=== PATIENT | female | born 1955 | race Caucasian/White ===

== ENCOUNTER → 2016-08-17 | Outpatient (CLI) | payer BC ==
--- NOTE | 2016-08-18 08:22 | MM ---
Reason for exam: screening (asymptomatic). Last mammogram was performed 1 year and 2 months ago. History: Patient is postmenopausal and is nulliparous. Physical Findings: A clinical breast exam by your physician is recommended on an annual basis and results should be correlated with mammographic findings. MG Screening Mammo w CAD Bilateral CC and MLO view(s) were taken. Prior study comparison: June 04, 2015, bilateral MG screening mammo w CAD. April 26, 2014, bilateral MG screening mammo w CAD. The breast tissue is heterogeneously dense. This may lower the sensitivity of mammography. There is no discrete abnormality. No significant changes when compared with prior studies. ASSESSMENT: Negative, BI-RAD 1 RECOMMENDATION: Routine screening mammogram of both breasts in 1 year.
== END | disposition home or self-care (01) ==
LOC: RADMAMWWP 08:35
PROVIDERS: ATTEND Obstetrics & Gynecology
DX: Z12.31 Encounter for screening mammogram for malignant neoplasm of breast (principal)

== ENCOUNTER → 2017-02-02 | Outpatient (CLI) | payer BC ==
--- NOTE | 2017-02-03 12:43 | NM ---
EXAMINATION TYPE: NM thyroid image w uptake DATE OF EXAM: 02/03/2017 COMPARISON: 07/14/2016 HISTORY: Nontoxic goiter TECHNIQUE: After the intravenous administration of 10.98 mCi Tc 99m Sodium Pertechnetate, thyroid roxana ging is performed 10 minutes post injection. Thyroid iodine uptake is calculated after the oral admin istration of 16.3 uCi I-131 capsule. FINDINGS: There is heterogeneous distribution of activity throughout the gland. The 4 hour iodine up take is calculated at 6.6% (normal range 8-14%). The 24-hour iodine uptake is calculated at 24.8% (no rmal range 15-35%). IMPRESSION: 1. Multiple cold appearing nodules with heterogeneous pattern bilaterally. 2. 24-hour uptake is within normal limits in the 4 hour uptake is borderline hypothyroidism.
== END | disposition home or self-care (01) ==
LOC: RADNMMAIN 01-25 10:37
PROVIDERS: ATTEND Internal Medicine
DX: E03.9 Hypothyroidism, unspecified (principal)
CPT/HCPCS: 78014; A9528; A9512

== ENCOUNTER → 2017-02-28 | Outpatient (CLI) | payer BC ==
--- NOTE | 2017-02-28 13:32 | US ---
EXAMINATION TYPE: US thyroid st tissue head/neck DATE OF EXAM: 02/28/2017 COMPARISON: NONE CLINICAL HISTORY: E04.9 Non-toxic goiter. follow up exam GLAND SIZE: Right Lobe: 7.8 x 4.1 x 3.8 cm Overall Parenchyma: heterogenous Left Lobe: 5.5 x 1.5 x 2.5 cm Overall Parenchyma: heterogeneous Isthmus Thickness: 0.2 cm NODULES RIGHT: # of nodules measured on right: 1 1. 4.2 X 2.4 x 3.1 cm mixed nodule at the mid pole with well-defined margins. This nodule is wider than tall and shows intranodular vascularity. Prior size: 4.4 x 3.1 x 3.7 cm LEFT: # of nodules measured on left: 1 1. 1.6 X 1.6 x 1.0 cm hypoechoic solid nodule at the mid pole with well-defined margins. This nodu le is wider than tall and shows intranodular vascularity. Prior size: 1.2 x 0.9 x 1.1 cm ISTHMUS: # of nodules measured in the isthmus: 1 1. 1.2 X 0.9 x 1.2 cm hypoechoic cystic nodule on the right side with well-defined margins. This n odule is wider than tall and shows no intranodular vascularity. Prior size: 1.2 x 0.9 x 1.1 cm Bilateral neck scanned, no evidence of lymphadenopathy. IMPRESSION: 1. Continued interval increase in size of a solid left thyroid nodule measuring up to 1.6 cm, previou sly measuring 1.2 cm and measuring 0.9 cm on the examination prior. Percutaneous fine-needle aspirati on could be performed of this nodule if clinically indicated. 2. Stable 4.2 cm heterogenous right thyroid nodule and thyroid isthmic nodule in the setting of a mul tinodular goiter.
== END | disposition home or self-care (01) ==
LOC: RADUSWWP 12:16
PROVIDERS: ATTEND Internal Medicine
DX: E04.2 Nontoxic multinodular goiter (principal)
CPT/HCPCS: 76536

== ENCOUNTER 2017-03-28 12:18 | Day surgery (SDC) | payer BC ==
[2017-03-28 12:46] VITALS: RESP 14; TEMP 97.8
[2017-03-28 13:13] VITALS: BP 119/73; PULSE 83
--- NOTE | 2017-03-28 13:31 | US ---
ULTRASOUND GUIDED FNA THYROID BIOPSY: CLINICAL HISTORY: Request is for a right thyroid 4.2 cm nodule and left 1.6 cm thyroid nodule FINDINGS: The procedure was explained to the patient. The risks, complications, benefits and alternatives were discussed and any questions were answered. Informed consent was obtained. Patient was placed supin e on the ultrasound table and prepped and draped in the usual sterile fashion. Utilizing a 25 gauge needle, five passes were made into the each of the 2 requested nodules. Patient was stable throughout the procedure. Pathology is pending. All elements of maximal barrier technique were utilized. IMPRESSION: 1. Successful ultrasound guided FNA thyroid biopsy.
== END 2017-03-28 13:18 | disposition home or self-care (01) ==
LOC: RADPROMAIN 12:18
PROVIDERS: ATTEND Internal Medicine
DX: E04.1 Nontoxic single thyroid nodule (principal); E07.9 Disorder of thyroid, unspecified
CPT/HCPCS: 10022; 76942; 88173; 88305

== ENCOUNTER → 2017-09-06 | Outpatient (CLI) | payer BC ==
--- NOTE | 2017-09-06 08:34 | BD ---
EXAMINATION TYPE: MG DEXA axial skeleton. DATE OF EXAM: 09/06/2017 COMPARISON: 06/04/2015 CLINICAL HISTORY: 62-year-old female with osteopenia, postmenopausal screening Height: 58.5 IN Weight: 115 LBS FRAX RISK QUESTIONS: Alcohol (3 or more units per day): NO Family History (Parent hip fracture): NO Glucocorticoids (More than 3mos): NO (Ex: prednisone, prednisolone, methylprednisolone, dexamethasone, and hydrocortisone). History of Fracture in Adulthood: NO Secondary Osteoporosis: 1. Type 1 Diabetes: NO 2. Hyperthyroidism: NO 3. Menopause before 45: YES AGE 26 4. Malnutrition: NO 5. Chronic liver disease: NO Rheumatoid Arthritis: NO Current Tobacco Use: NO RISK FACTORS HISTORY OF: Family History of Osteoporosis: YES MOTHER Active: YES Diet low in dairy products/other sources of calcium: YES Postmenopausal woman: AGE 26 Take estrogen and/or progesterone medications: NOT NOW How long: CONTROL AGE 20 - 26 MEDICATIONS: Additional Medications: CALCIUM, VIT D, BLOOD PRESSURE MEDS, DIABETES MEDS, MULTI VIT, EXAM MEASUREMENTS: Bone mineral densitometry was performed using the [employer]. Bone mineral density as measured about the Lumbar spine is: ----- L1-L4(G/cm2): 0.876 T Score Values are as follows: ----- L2: -2.8 ----- L3: -3.0 ----- L4: -2.1 ----- L1-L4: -2.5 Bone mineral density has: Decreased -4.0% since study of: 06/04/2015 Bone mineral density about the R hip (g/cm2): 0.756 Bone mineral density about the L hip (g/cm2): 0.759 T Score values are as follows: -----R Neck: -2.0 -----L Neck: -2.0 -----R Total: -1.4 -----L Total: -1.3 Bone mineral density has: Increased 3.3% since study of: 06/04/2015 IMPRESSION: Osteoporosis (T Score less than -2.5). There is increased fracture risk and therapy is usually indicated based on age. Re-Screen 1-2 years. NOTE: T-SCORE=SD OF THE YOUNG ADULT MEAN.
--- NOTE | 2017-09-07 09:24 | MM ---
Reason for exam: screening (asymptomatic). Last mammogram was performed 1 year and 1 month ago. History: Patient is postmenopausal and is nulliparous. Physical Findings: A clinical breast exam by your physician is recommended on an annual basis and results should be correlated with mammographic findings. MG Screening Mammo w CAD Bilateral CC and MLO view(s) were taken. Prior study comparison: August 17, 2016, bilateral MG screening mammo w CAD. June 04, 2015, bilateral MG screening mammo w CAD. The breast tissue is heterogeneously dense. This may lower the sensitivity of mammography. There is no discrete abnormality. ASSESSMENT: Negative, BI-RAD 1 RECOMMENDATION: Routine screening mammogram of both breasts in 1 year.
== END | disposition home or self-care (01) ==
LOC: RADMAMWWP 07:16
PROVIDERS: ATTEND Obstetrics & Gynecology
DX: Z12.31 Encounter for screening mammogram for malignant neoplasm of breast (principal); M81.0 Age-related osteoporosis without current pathological fracture
CPT/HCPCS: 77067; 77080

== ENCOUNTER → 2017-12-29 | Outpatient (CLI) | payer BC ==
--- NOTE | 2017-12-29 11:16 | US ---
EXAMINATION TYPE: US kidneys/renal and bladder DATE OF EXAM: 12/29/2017 COMPARISON: CT urogram February 02, 2016 & US CLINICAL HISTORY: R31.9 Hematuria. Pt states microscopic hematuria EXAM MEASUREMENTS: Right Kidney: 9.6 x 4.3 x 4.5 cm Left Kidney: 10.8 x 4.3 x 4.4 cm Right Kidney: Appeared wnl, lower pole gassed out Left Kidney: Cyst upper pole= 1.2 x 0.9 x 0.8 cm mildly dilated renal pelvis= 1.2 cm Bladder: wnl Bilateral Jets seen: Yes There is no evidence for hydronephrosis at this point in time. No nephrolithiasis is seen. No new s uspicious solid or cystic masses are identified. A small 1.2 x 0.9 cm simple appearing cyst upper po le level left kidney is felt to correlate to CT series 10 image 14. The urinary bladder is anechoic. Bilateral ureteral jets are seen. IMPRESSION: No suspicious finding is seen to account for patient's symptoms of hematuria.
== END | disposition home or self-care (01) ==
LOC: RADUSWWP 10:50
PROVIDERS: ATTEND Internal Medicine
DX: R31.9 Hematuria, unspecified (principal)
CPT/HCPCS: 76770

== ENCOUNTER → 2018-10-19 | Outpatient (CLI) | payer BC, MEDICARE ==
--- NOTE | 2018-10-20 11:21 | MM ---
Reason for exam: screening (asymptomatic). Last mammogram was performed 1 year and 1 month ago. History: Patient is postmenopausal and is nulliparous. Physical Findings: A clinical breast exam by your physician is recommended on an annual basis and results should be correlated with mammographic findings. MG Screening Mammo w CAD Bilateral CC and MLO view(s) were taken. Prior study comparison: September 06, 2017, bilateral MG screening mammo w CAD. August 17, 2016, bilateral MG screening mammo w CAD. The breast tissue is heterogeneously dense. This may lower the sensitivity of mammography. No significant changes when compared with prior studies. ASSESSMENT: Negative, BI-RAD 1 RECOMMENDATION: Routine screening mammogram of both breasts in 1 year.
== END | disposition home or self-care (01) ==
LOC: RADMAMWWP 08:17
PROVIDERS: ATTEND Obstetrics & Gynecology
DX: Z12.31 Encounter for screening mammogram for malignant neoplasm of breast (principal)
CPT/HCPCS: 77067

== ENCOUNTER 2018-10-25 07:47 | Day surgery (SDC) | payer BC, MEDICARE ==
[2018-10-24 08:27] VITALS: BMI 25.0
[~2018-10-25 07:47] MED LIST: LACTATED RINGERS 1,000 ML IV SCH; LIDOCAINE 1% 20 ML VIAL (10MG/ML) FOR IV START INTRADERMA PRN
[2018-10-25 08:07] VITALS: RESP 16; TEMP 97.2
[2018-10-25 08:18] LABS: Glucose,Whole Blood 139 mg/dL (75-99)
[2018-10-25] MEDS ORDERED: PROPOFOL 10 MG/ML 20 ML VIAL IV ONE (08:25)
[2018-10-25] MEDS ORDERED: LIDOCAINE 1% INJ 10MG/ML (20 ML MDV) ONE (08:25)
--- NOTE | 2018-10-25 08:35 | P.PCN ---
Date of Procedure: 10/25/18 Procedure(s) Performed: BRIEF HISTORY: Patient is a 63-year-old, pleasant, female, scheduled for an upper endoscopy as a part of evaluation of long-standing history of GERD.. PROCEDURE PERFORMED: Esophagogastroduodenoscopy with biopsy. PREOPERATIVE DIAGNOSIS: Long Standing history of GERD. IV sedation per anesthesia. PROCEDURE: After informed consent was obtained, the patient was brought into the endoscopy unit. IV sedation was administered by Anesthesia under continuous monitoring. Initially the Olympus GIF-140 video endoscope was inserted into the mouth. Esophagus intubated without any difficulty. It was gradually advanced into the stomach and duodenum and carefully examined. The bulb and the second part of the duodenum appeared normal. The scope at this time was withdrawn to the stomach, adequately insufflated with air, and upon careful examination, mucosa of the antrum mild gastritis and biopsies were done from this area. The, body, cardia and the fundus appeared normal. There were multiple small gastric polyps noted which were also biopsied. The scope was then withdrawn into the esophagus. Mall sliding Hiatal hernia noted. The GE junction was located at 39 cm from the incisors. The esophagus appeared normal. There were no erosions or ulcerations seen and the patient tolerated the procedure well. IMPRESSION: 1. Mild antral gastritis. 2. Small gastric polyps. 3. Small sliding Hiatal hernia but no evidence of esophagitis or Terry's esophagus RECOMMENDATIONS: The findings of this examination were discussed with the patient as well as her family. She was advised to follow with the biopsy results. Continue with OTC H2 blockers as needed for GERD symptoms..
[2018-10-25 08:55] VITALS: BP 122/74; PULSE 85
== END 2018-10-25 09:05 | disposition home or self-care (01) ==
LOC: ORWHC2ENDO 07:47
PROVIDERS: ATTEND Internal Medicine Gastroenterology
DX: K21.9 Gastro-esophageal reflux disease without esophagitis (principal); K29.70 Gastritis, unspecified, without bleeding; K31.9 Disease of stomach and duodenum, unspecified; K31.7 Polyp of stomach and duodenum; K44.9 Diaphragmatic hernia without obstruction or gangrene; Z88.8 Allergy status to other drugs, medicaments and biological substances; I10 Essential (primary) hypertension; E11.9 Type 2 diabetes mellitus without complications; Z79.84 Long term (current) use of oral hypoglycemic drugs; Z79.899 Other long term (current) drug therapy
CPT/HCPCS: 88305; 43239; J2001; J2704

== ENCOUNTER → 2019-02-14 | Outpatient (CLI) | payer BC ==
--- NOTE | 2019-02-15 10:26 | NM ---
EXAMINATION TYPE: NM thyroid image w uptake DATE OF EXAM: 02/15/2019 COMPARISON: Prior scan dated 02/03/2017 an ultrasound 02/28/2017 HISTORY: TECHNIQUE: Thyroid iodine uptake is calculated and images performed after the oral administration of 314 uCi 1-123 Capsule. FINDINGS: There is stable abnormal distribution of activity throughout the gland. The 4 hour iodine uptake is calculated at 16.3% (normal range 8-14%). The 24-hour iodine uptake is calculated at 36.1% (normal range 15-35%). Uptake is heterogeneous, decreased trapping noted the inferior right lobe corresponding to patient's large nodule seen on ultrasound IMPRESSION: Stable thyroid scan, cold nodule dominant in the right lobe. Uptake shows abnormal elevat ion on four-hour and 24-hour scanning as compared to prior exam. Small focal cold nodule left lobe, c orrelate for thyroiditis.
== END | disposition home or self-care (01) ==
LOC: RADNMMAIN 08:31
PROVIDERS: ATTEND Internal Medicine
DX: E04.2 Nontoxic multinodular goiter (principal)
CPT/HCPCS: 78014; A9516

== ENCOUNTER → 2019-08-07 | Outpatient (CLI) | payer BC ==
--- NOTE | 2019-08-07 18:54 | US ---
EXAMINATION TYPE: US thyroid st tissue head/neck DATE OF EXAM: 08/07/2019 COMPARISON: US 2017 CLINICAL HISTORY: E04.9 non-toxic goiter, unspecified. Thyroid nodules, history of thyroid FNA GLAND SIZE: Right Lobe: 7.3 x 3.9 x 4.3 cm Overall Parenchyma: heterogenous Left Lobe: 5.4 x 2.2 x 2.0 cm Overall Parenchyma: heterogeneous Isthmus Thickness: 0.2 cm NODULES RIGHT: # of nodules measured on right: 1 1. 5.6 X 3.1 x 4.2 cm hypoechoic mixed nodule at the lower pole with well-defined margins. This nod ule is wider than tall and shows intranodular vascularity. Prior size: 4.2 x 2.4 x 3.1 cm LEFT: # of nodules measured on left: 1 1. 2.3 X 0.8 x 1.4 cm hypoechoic mixed nodule at the right isthmus with well-defined margins. This nodule is wider than tall and shows intranodular vascularity. Prior size: 1.2 x 0.9 x 1.2 cm ISTHMUS: # of nodules measured in the isthmus: 1 1. 2.5 X 1.5 x 1.5 cm hypoechoic solid nodule at the lower pole with well-defined margins. This nod ule is as wide as tall and shows intranodular vascularity. Prior size: 1.6 x 1.6 x 1.0 cm Bilateral neck scanned, no evidence of lymphadenopathy. Enlarged heterogenous gland with multiple nodules described above. IMPRESSION: 1. Marked thyromegaly with multinodular thyroid. There appears to be interval increase in size of the 3 largest nodules as measured above.
== END | disposition home or self-care (01) ==
LOC: RADUSWWP 16:11
PROVIDERS: ATTEND Internal Medicine
DX: E01.0 Iodine-deficiency related diffuse (endemic) goiter (principal)
CPT/HCPCS: 76536

== ENCOUNTER → 2020-09-26 | Outpatient (CLI) | payer BC ==
--- NOTE | 2020-09-26 16:54 | BD ---
EXAMINATION TYPE: Axial Bone Density DATE OF EXAM: 09/26/2020 COMPARISON: 09/06/2017 CLINICAL HISTORY: Postmenopausal screening Height: 4 FT 10 1/2 IN Weight: 126 FRAX RISK QUESTIONS: Alcohol (3 or more units per day): NO Family History (Parent hip fracture): YES Glucocorticoids (More than 3mos): NO (Ex: prednisone, prednisolone, methylprednisolone, dexamethasone, and hydrocortisone). History of Fracture in Adulthood: NO Secondary Osteoporosis: 1. Type 1 Diabetes: YES 2. Hyperthyroidism: GOITER 3. Menopause before 45: YES 4. Malnutrition: NO 5. Chronic liver disease: NO Rheumatoid Arthritis: YES Current Tobacco Use: NO RISK FACTORS HISTORY OF: Surgery to Spine/Hip(right/left)/Wrist (right/left): NO Family History of Osteoporosis: YES Active: YES Diet low in dairy products/other sources of calcium: NO Postmenopausal woman: PRE MATURE MENOPAUSE AGE 28 Take estrogen and/or progesterone medications: NONE Lost more than 2 inches in height since high school: NO MEDICATIONS: Additional Medications: METOPROLOL, JANUVIA, AMLODIPINE, ROSUVASTATIN Additional History: EXAM MEASUREMENTS: Bone mineral densitometry was performed using the [employer]. Bone mineral density as measured about the Lumbar spine is: ----- L1-L4(G/cm2): 0.863 T Score Values are as follows: ----- L2: -3.1 ----- L3: -2.6 ----- L4: -2.7 ----- L1-L4: -2.6 Bone mineral density has: DECREASED -2.4 % since study of: 2017 Bone mineral density about the R hip (g/cm2): 0.749 Bone mineral density about the L hip (g/cm2): 0.745 T Score values are as follows: -----R Neck: -2.1 -----L Neck: -2.1 -----R Total: -1.6 -----L Total: -1.6 Bone mineral density has: DECREASED -4.1 % since study of: 2017 IMPRESSION: Osteoporosis (T Score less than -2.5). There is increased fracture risk and therapy is usually indicated based on age. Re-Screen 1-2 years. NOTE: T-SCORE=SD OF THE YOUNG ADULT MEAN.
--- NOTE | 2020-09-29 11:40 | MM ---
Reason for exam: screening (asymptomatic). Last mammogram was performed 1 year and 11 months ago. History: Patient is postmenopausal and is nulliparous. Physical Findings: A clinical breast exam by your physician is recommended on an annual basis and results should be correlated with mammographic findings. MG Screening Mammo w CAD Bilateral CC and MLO view(s) were taken. Prior study comparison: October 19, 2018, bilateral MG screening mammo w CAD. September 06, 2017, bilateral MG screening mammo w CAD. The breast tissue is heterogeneously dense. This may lower the sensitivity of mammography. No significant changes when compared with prior studies. ASSESSMENT: Negative, BI-RAD 1 RECOMMENDATION: Routine screening mammogram of both breasts in 1 year.
== END ==
LOC: RADMAMWWP 09:47
PROVIDERS: ATTEND Obstetrics & Gynecology
DX: M81.8 Other osteoporosis without current pathological fracture (principal)
CPT/HCPCS: 77067; 77080

== ENCOUNTER → 2020-11-03 | Outpatient (CLI) | payer BC ==
--- NOTE | 2020-11-04 08:28 | US ---
EXAMINATION TYPE: US thyroid st tissue head/neck DATE OF EXAM: 11/03/2020 COMPARISON: US CLINICAL HISTORY: E04.1 Thyroid nodule. GLAND SIZE: Right Lobe: 7.5 x 4.6 x 3.36 cm Overall Parenchyma: heterogenous Left Lobe: 5.6 x 1.9 x 2.1 cm Overall Parenchyma: heterogeneous Isthmus Thickness: 0.2 cm NODULES RIGHT: # of nodules measured on right: multinodular with largest consolidated area measured 1. 6.0 X 4.5 x 3.6 cm, mid lower pole, mixed cystic and solid, isoechoic nodule, which is wider jessee n tall, with ill-defined margins, with echogenic foci. Prior size: 5.6 x 4.2 x 3.1 cm LEFT: # of nodules measured on left: 1 largest of multiple 1. 1.3 X 0.9 x 0.9 cm, lower pole, mixed cystic and solid, hypoechoic nodule, which is wide as is t all, with lobulated or irregular margins, with echogenic wall foci. Prior size: 2.3 x 1.4 x 0.8 cm ISTHMUS: # of nodules measured in the isthmus: 1 right isthmus 1. 1.4 X 1.3 x 0.7 cm mixed cystic and solid, hypoechoic nodule, which is wider than tall, with smo oth margins, with echogenic foci. Prior size: 2.5 x 1.5 x 1.5 cm Bilateral neck scanned: no evidence of lymphadenopathy. IMPRESSION: Multinodular goiter, moderately suspicious nodule lower pole left lobe of thyroid gland, follow-up ul trasound recommended in one year 2017 ACR TI-RADS LEVEL: 4 *Highest TI-RADS level nodule reported
== END | disposition home or self-care (01) ==
LOC: RADUSWWP 16:43
PROVIDERS: ATTEND Otolaryngology
DX: E04.2 Nontoxic multinodular goiter (principal)
CPT/HCPCS: 76536

== ENCOUNTER → 2021-11-04 | Outpatient (CLI) | payer BC ==
--- NOTE | 2021-11-04 14:46 | US ---
EXAMINATION TYPE: US thyroid st tissue head/neck DATE OF EXAM: 11/04/2021 COMPARISON: 11/03/2020 CLINICAL HISTORY: E04.1 NONTOXIC SINGLE THYROID NODULE. f/u exam GLAND SIZE: Right Lobe: 7.7 x 4.6 x 4.3 cm Overall Parenchyma: heterogenous Left Lobe: 5.9 x 2.0 x 2.3 cm Overall Parenchyma: heterogeneous Isthmus Thickness: 0.5 cm NODULES RIGHT: # of nodules measured on right: 0 LEFT: # of nodules measured on left: 0 ISTHMUS: # of nodules measured in the isthmus: 0 Bilateral neck scanned, no evidence of lymphadenopathy. Enlarged gland that is diffusely heterogeneous, innumerable areas seen, unable to determine lesions m easured prior to anything new. IMPRESSION: Thyroid glandular enlargement and heterogeneity. Subcentimeter cystic lesions persist.
== END | disposition home or self-care (01) ==
LOC: RADUSWWP 14:15
PROVIDERS: ATTEND Otolaryngology
DX: E04.1 Nontoxic single thyroid nodule (principal)
CPT/HCPCS: 76536

== ENCOUNTER → 2021-11-11 | Outpatient (CLI) | payer BC ==
--- NOTE | 2021-11-12 12:08 | MM ---
Reason for exam: screening (asymptomatic). Last mammogram was performed 1 year and 1 month ago. History: Patient is postmenopausal and is nulliparous. Physical Findings: A clinical breast exam by your physician is recommended on an annual basis and results should be correlated with mammographic findings. MG Screening Mammo w CAD Bilateral CC and MLO view(s) were taken. Prior study comparison: September 26, 2020, bilateral MG screening mammo w CAD. October 19, 2018, bilateral MG screening mammo w CAD. The breast tissue is heterogeneously dense. This may lower the sensitivity of mammography. There is chronic nodularity in the left inferior breast vesus skin lesions. There is no discrete abnormality. ASSESSMENT: Benign, BI-RAD 2 RECOMMENDATION: Routine screening mammogram of both breasts in 1 year. Some advise bilateral ultrasound surveillance in patient with dense tissue.
== END ==
LOC: RADMAMWWP 14:25
PROVIDERS: ATTEND Obstetrics & Gynecology
DX: Z12.31 Encounter for screening mammogram for malignant neoplasm of breast (principal)
CPT/HCPCS: 77067

== ENCOUNTER 2021-12-16 06:51 | Day surgery (SDC) | payer BC ==
[2021-12-11 11:40] VITALS: BMI 25.0
[~2021-12-16 06:51] MED LIST changes: +LIDOCAINE 1% (10MG/ML) FOR IV START INTRADERMA PRN; -LIDOCAINE 1% 20 ML VIAL (10MG/ML) FOR IV START INTRADERMA PRN
[2021-12-16 07:23] VITALS: TEMP 98.1
[2021-12-16 07:31] LABS: Glucose,Whole Blood 149 mg/dL (75-99)
[2021-12-16] MEDS ORDERED: GLYCOPYRROLATE 0.2 MG/ML 2 ML VIAL ONE (08:05)
[2021-12-16] MEDS ORDERED: PROPOFOL 10 MG/ML 20 ML VIAL IV ONE (08:05)
--- NOTE | 2021-12-16 08:22 | P.PCN ---
Date of Procedure: 12/16/21 Procedure(s) Performed: Brief history: Patient is a pleasant 66-year-old white female scheduled for an elective upper endoscopy as well as colonoscopy as a part of evaluation of Ramirez any history of GERD and screening for colon cancer Procedure performed: Esophagogastroduodenoscopy with biopsy Colonoscopy Preoperative diagnosis: Long-standing history of GERD Screening for colon cancer Anesthesia: MAC Procedure: After informed consent was obtained from the patient was brought into the endoscopy unit and IV sedation was administered by anesthesia under continuous monitoring. Initially upper endoscopy was done. The Olympus GF 160 video endoscope was inserted inserted into the mouth and esophagus intubated without any difficulty and was gradually advanced into the stomach and duodenum and carefully examined. The bulb and second part of the duodenum appeared normal. The scope was then withdrawn into the stomach adequately insufflated with air and upon careful examination the antrum and body, cardia and fundus appeared normal. The scope was then withdrawn into the esophagus. The GE junction was located at 36 cm to the incisors. Small hiatal hernia noted. There was erythema the GE junction consistent with LA grade a reflux esophagitis. Also there was a 5 mm tongue of Terry's appearing mucosa just proximal to the GE junction which was biopsied. Rest of the esophagus appeared normal. Patient tolerated the procedure well. At this time the patient continued to remain sedation. Initial digital rectal examination was normal. Olympus CF 160 video colonoscope was then inserted into the rectum and gradually advanced to the cecum without any difficulty. Careful examination was performed as the scope was gradually being withdrawn. The prep was excellent. The cecum, ascending colon, transverse colon, descending colon, sigmoid colon and rectum appeared normal. Scattered sigmoid diverticulosis. Retroflexion was performed in the rectum and no lesions were noted. Patient tolerated the procedure well. Impression: 1. Upper endoscopy revealed small hiatal hernia, LA grade A reflux esophagitis and short segment Terry's esophagus 2. Colonoscopy revealed scattered sigmoid diverticulosis but no evidence of colorectal neoplasia Recommendations: Findings of this examination were discussed with the patient as well as her family. She was advised to start on omeprazole 20 mg daily and follow antireflux measures. The biopsies confirm the presence of Terry's esophagus he can have a repeat upper endoscopy in 3 years. Recommend repeat screening colonoscopy in 10 years.
[2021-12-16 08:44] VITALS: BP 112/72; PULSE 92; RESP 17
== END 2021-12-16 09:00 | disposition home or self-care (01) ==
LOC: ORWHC2ENDO 06:51
PROVIDERS: ATTEND Internal Medicine Gastroenterology
DX: Z12.11 Encounter for screening for malignant neoplasm of colon (principal); K21.9 Gastro-esophageal reflux disease without esophagitis; K57.30 Diverticulosis of large intestine without perforation or abscess without bleeding; K22.70 Barrett's esophagus without dysplasia; K44.9 Diaphragmatic hernia without obstruction or gangrene; K21.00 Gastro-esophageal reflux disease with esophagitis, without bleeding
CPT/HCPCS: 43239; 88305; 88342; J2704; G0121

== ENCOUNTER → 2022-08-11 | Outpatient (CLI) | payer BC ==
[2022-08-11 14:51] LABS: T4, Free (Free Thyroxine) 1.26 ng/dL (0.800-1.800)
== END | disposition home or self-care (01) ==
LOC: LABWHC1 08:52
PROVIDERS: ATTEND Internal Medicine Endocrinology, Diabetes & Metabolism
DX: E04.2 Nontoxic multinodular goiter (principal)
CPT/HCPCS: 36415; 84439; 84443; 84480

== ENCOUNTER → 2022-12-08 | Outpatient (CLI) | payer BC ==
--- NOTE | 2022-12-09 12:25 | US ---
EXAMINATION TYPE: US thyroid st tissue head/neck DATE OF EXAM: 12/08/2022 COMPARISON: 11/04/2022 CLINICAL INDICATION: Female, 67 years old with history of E04.2 NONTOXIC GOITER; follow up goiter pos t rt thyroidectomy GLAND SIZE: Right Lobe: Surgically absent Left Lobe: 5.8x2.1x2.2 cm Overall Parenchyma: heterogenous Isthmus Thickness: 0.6 cm NODULES LEFT: # of nodules measured on left: 0 diffusely heterogenous parenchyma with a combination of cystic and hypoechoic and echogenic areas. Th e degree of heterogeneity makes it difficult to delineate discrete nodules. ISTHMUS: # of nodules measured in the isthmus: 0 Bilateral neck scanned, no evidence of lymphadenopathy. IMPRESSION: Interval right thyroid lobectomy. The left lobe remains mildly enlarged and severely heterogeneous wi th cystic and heterogeneous solid areas throughout. The degree of heterogeneity makes it very difficu lt to delineate discrete nodules.
== END | disposition home or self-care (01) ==
LOC: RADUSWWP 15:25
PROVIDERS: ATTEND Internal Medicine Endocrinology, Diabetes & Metabolism
DX: E04.2 Nontoxic multinodular goiter (principal)
CPT/HCPCS: 76536

== ENCOUNTER → 2022-12-08 | Outpatient (CLI) | payer BC ==
--- NOTE | 2022-12-09 20:03 | BD ---
EXAMINATION TYPE: Axial Bone Density DATE OF EXAM: 12/08/2022 CLINICAL HISTORY: 67 years old Female. ICD-10 CODE: [id number] OSTEO Height: 57 in Weight: 130 lbs FRAX RISK QUESTIONS: Secondary Osteoporosis: 3. Menopause before 45: age 29 RISK FACTORS HISTORY OF: Family History of Osteoporosis: yes mother Active: yes Diet low in dairy products/other sources of calcium: yes Postmenopausal woman: age 29 MEDICATIONS: Additional Medications: vit d, calcium,diabetes meds, blood pressure meds, omeprazole, statin med, EXAM MEASUREMENTS: Bone mineral densitometry was performed using the [employer] System. Bone mineral density as measured about the Lumbar spine is: ----- L1-L4(G/cm2): 0.862 T Score Values are as follows: ----- L1: -2.1 ----- L2: -3.5 ----- L3: -3.2 ----- L4: -2.0 ----- L1-L4: -2.7 Z Score Values are as follows: ----- L1: -0.3 ----- L2: -1.6 ----- L3: -1.4 ----- L4: -0.2 ----- L1-L4: -0.8 Bone mineral density has: Decreased -0.1% since study of: 09/26/2020 Bone mineral density about the R hip (g/cm2): 0.768 Bone mineral density about the L hip (g/cm2): 0.775 T Score values are as follows: -----R Neck: -2.1 -----L Neck: -2.3 -----R Total: -1.9 -----L Total: -1.8 Z Score values are as follows: -----R Neck: -0.3 -----L Neck: -0.5 -----R Total: -0.3 -----L Total: -0.3 Bone mineral density has: Decreased -4.1% since study of: 09/26/2020 FRAX%s: The graph provided illustrates a 13.1% chance for a major osteoporotic fx and a 2.9% chance f or the hips probability for fx in 10 years time. IMPRESSION: Osteoporosis (T Score less than -2.5). There is increased fracture risk and therapy is usually indicated based on age. Re-Screen 1-2 years. NOTE: T-SCORE=SD OF THE YOUNG ADULT MEAN.
--- NOTE | 2022-12-09 21:11 | MM ---
Reason for Exam: Screening (asymptomatic). Last mammogram was performed 1 year(s) and 1 month(s) ago. Patient History: Menarche at age 9. Patient has no children. Postmenopausal. Risk Values: Ginger 5 year model risk: 2.1%. NCI Lifetime model risk: 6.4%. Prior Study Comparison: 10/19/2018 Bilateral Screening Mammogram, [facility]. 09/26/2020 Bilateral Screening Mammogram, [facility]. 11/11/2021 Bilateral Screening Mammogram, [facility]. Tissue Density: The breast tissue is heterogeneously dense. This may lower the sensitivity of mammography. Findings: Analyzed By CAD. There is no suspicious group of microcalcifications or new suspicious mass in either breast. Overall Assessment: Negative, BI-RAD 1 Management: Screening Mammogram of both breasts in 1 year. . Patient should continue monthly self-breast exams. A clinical breast exam by your physician is recommended on an annual basis. This exam should not preclude additional follow-up of suspicious palpable abnormalities. Note on Ginger scores and lifetime risk: 1. A Ginger score greater than 3% is considered moderate risk. If this is the case, consider specialist referral to assess eligibility for a risk reducing agent. 2. If overall lifetime risk for the development of breast cancer is 20% or higher, the patient may qualify for future screening with alternating mammogram and breast MRI. Electronically signed and approved by: Panfilo Ewing M.D. Radiologist
== END | disposition home or self-care (01) ==
LOC: RADBDWWP 15:22
PROVIDERS: ATTEND Obstetrics & Gynecology
DX: Z12.31 Encounter for screening mammogram for malignant neoplasm of breast (principal); M81.0 Age-related osteoporosis without current pathological fracture; M85.89 Other specified disorders of bone density and structure, multiple sites; Z78.0 Asymptomatic menopausal state
CPT/HCPCS: 77067; 77080

== ENCOUNTER 2023-02-16 13:26 | Emergency (ER) | payer BC ==
[2023-02-16 13:36] VITALS: RESP 16
[2023-02-16] MEDS ORDERED: DIPH,PERTUS(ACELL)TETVAC-LF 0.5 ML VIAL IM ONE (14:27)
--- NOTE | 2023-02-16 14:42 | ED ---
Wound/Laceration HPI - General Chief Complaint: Wound/Laceration Stated Complaint: Fell,Cut Back of Head at work but not claiming IHS Time Seen by Provider: 02/16/23 14:21 Source: patient Mode of arrival: ambulatory Limitations: no limitations - History of Present Illness Initial Comments: Patient is 67-year-old female who tripped over carpeting and fell backwards hitting her head on a table. She has a laceration to the mid posterior scalp but denies any injury to any other location. She states that the fall did happen at work however she is not utilizing her industrial health services or Workmen's Compensation. She reports some mild localized head pain but denies any other complaints or concerns including any loss of consciousness at the time of or after fall, dizziness, blurred or double vision, nausea, vomiting, altered mental status or confusion. She is unsure if her tetanus vaccination is up-to-date. She has a past medical history significant for diabetes, hypertension and hyperlipidemia. - Related Data Home Medications Medication Instructions Recorded Confirmed Amlodipine Besylate/Valsartan 1 tab PO QAM 03/11/17 02/03/23 [Exforge 10-160 MG] Multivit-Min/FA/Lycopen/Lutein 1 tab PO DAILY 03/11/17 02/01/23 [Centrum Silver Tablet] Rosuvastatin Calcium 5 mg PO QAM 10/24/18 02/03/23 Cholecalciferol [Vitamin D3 (25 25 mcg PO DAILY 12/11/21 02/03/23 Mcg = 1000 Iu)] sitaGLIPtin [Januvia] 100 mg PO QAM 12/11/21 02/03/23 Dapagliflozin Propanediol [Farxiga] 5 mg PO QAM 02/01/23 02/03/23 Previous Rx's Medication Instructions Recorded Amoxicillin 2 cap PO Q8H #60 capsule 02/03/23 HYDROcodone/APAP 5-325MG [[place] 1 tab PO Q6H PRN 3 Days #12 tab 02/03/23 5-325] predniSONE [Deltasone] 20 mg PO DIRECTED #5 tab 02/03/23 Allergies Allergy/AdvReac Type Severity Reaction Status Date / Time alendronate sodium Allergy Swelling Verified 02/03/23 11:48 [From Fosamax] Review of Systems ROS Statement: Those systems with pertinent positive or pertinent negative responses have been documented in the HPI. ROS Other: All systems not noted in ROS Statement are negative. Past Medical History Past Medical History: Diabetes Mellitus, Hyperlipidemia, Hypertension Additional Past Medical History / Comment(s): NIDDM History of Any Multi-Drug Resistant Organisms: None Reported Additional Past Surgical History / Comment(s): RT Bunion Removed. COLONOSCOPY Past Anesthesia/Blood Transfusion Reactions: No Reported Reaction Past Psychological History: No Psychological Hx Reported Smoking Status: Former smoker Past Alcohol Use History: None Reported Past Drug Use History: None Reported - Past Family History Mother Family Medical History: No Reported History General Exam Limitations: no limitations General appearance: alert, in no apparent distress Head exam: Present: normocephalic Expanded Head exam: Present: laceration (Midposterior scalp). Absent: hematoma Eye exam: Present: normal appearance, PERRL, EOMI. Absent: scleral icterus, conjunctival injection, nystagmus, periorbital swelling ENT exam: Present: normal exam, mucous membranes moist Neck exam: Present: normal inspection. Absent: tenderness Respiratory exam: Absent: respiratory distress, accessory muscle use Cardiovascular Exam: Present: regular rate GI/Abdominal exam: Present: soft. Absent: distended, tenderness, guarding, rebound, rigid Extremities exam: Present: normal inspection. Absent: pedal edema, joint swelling Back exam: Present: normal inspection Neurological exam: Present: alert, oriented X3, CN II-XII intact Psychiatric exam: Present: normal affect, normal mood Skin exam: Present: other (Laceration as above.) Course Vital Signs 02/16/23 13:34 Temperature 98.7 F Pulse Rate 83 Respiratory 16 Rate Blood Pressure 125/74 O2 Sat by Pulse 98 Oximetry Procedures - Laceration Laceration #1 Indication: laceration Site: scalp (Mid posterior) Size (cm): 2 Description: linear Depth: simple, single layer Pre-repair: wound explored, irrigated extensively, deep structures intact Type of Sutures: other (Staple) Number of Sutures: 2 Patient Tolerated Procedure: well, no complications Medical Decision Making - Medical Decision Making Was pt. sent in by a medical professional or institution (, PA, HEADER UP, urgent care, hospital, or custodial...) When possible be specific @ -No Did you speak to anyone other than the patient for history (EMS, parent, family, police, friend...)? What history was obtained from this source @ -No Did you review nursing and triage notes (agree or disagree)? Why? @ -I reviewed and agree with nursing and triage notes Were old charts reviewed (outside hosp., previous admission, EMS record, old EKG, old radiological studies, urgent care reports/EKG's, custodial records)? Report findings @ -No old charts were reviewed Differential Diagnosis (chest pain, altered mental status, abdominal pain women, abdominal pain men, vaginal bleeding, weakness, fever, dyspnea, syncope, headache, dizziness, GI bleed, back pain, seizure, CVA, palpatations, mental health, musculoskeletal)? @ -not applicable EKG interpreted by me (3pts min.). @ -None done X-rays interpreted by me (1pt min.). @ -None done CT interpreted by me (1pt min.). @ -None done U/S interpreted by me (1pt. min.). @ -None done What testing was considered but not performed or refused? (CT, X-rays, U/S, labs)? Why? @ -Computed tomography scan of the brain considered however deferred due to no obvious skull deformities, no loss of consciousness or blood thinner usage. What meds were considered but not given or refused? Why? @ -Yes analgesics along with lidocaine for laceration closure offered and declined. Did you discuss the management of the patient with other professionals (professionals i.e. , PA, HEADER UP, lab, RT, psych nurse, geriatric social work professor, finance officer, teacher, tactical debriefer officer, continuous pillowcase cutter)? Give summary @ -No Was smoking cessation discussed for >3mins.? @ -No Was critical care preformed (if so, how long)? @ -No Were there social determinants of health that impacted care today? How? (Homelessness, low income, unemployed, alcoholism, drug addiction, transportation, low edu. Level, literacy, decrease access to med. care, mcc, rehab)? @ -No Was there de-escalation of care discussed even if they declined (Discuss DNR or withdrawal of care, Hospice)? DNR status @ -No What co-morbidities impacted this encounter? (DM, HTN, Smoking, COPD, CAD, Cancer, CVA, ARF, Chemo, Hep., AIDS, mental health diagnosis, sleep apnea, m orbid obesity)? @ -None Was patient admitted / discharged? Hospital course, mention meds given and route, prescriptions, significant lab abnormalities, going to OR and other pertinent info. @ -67-year-old male presents to the emergency room after a trip and fall hitting the back of her head on a table which caused a laceration. She denies any injury to any other location. No loss of consciousness or blood thinner usage. No indication for any diagnostic imaging or laboratory studies. Unsure of tetanus status will update tetanus and close laceration with chloe lidocaine offered and declined. Patient tolerated placement of 2 chloe to lip laceration well after wound was cleansed. Localized wound care and staple care discussed with patient. No indication for any antibiotic therapy. Questions and concerns answered. Return parameters to the emergency room discussed. Will discharge home in stable condition with chloe intact to laceration of the scalp post fall advising return to emergency room for staple removal and follow- up with primary care provider as needed. Undiagnosed new problem with uncertain prognosis? @ -No Drug Therapy requiring intensive monitoring for toxicity (Heparin, Nitro, Insulin, Cardizem)? @ -No Were any procedures done? @ -Yes, staple placement see procedures for details Diagnosis/symptom? @ -Laceration Acute, or Chronic, or Acute on Chronic? @ -Acute Uncomplicated (without systemic symptoms) or Complicated (systemic symptoms)? @ -Uncomplicated Side effects of treatment? @ -No Exacerbation, Progression, or Severe Exacerbation? @ -No Poses a threat to life or bodily function? How? (Chest pain, USA, NC, pneumonia, PE, COPD, DKA, ARF, appy, cholecystitis, CVA, Diverticulitis, Homicidal, Suicidal, threat to staff... and all critical care pts) @ -No Diagnosis/symptom? @ -default Acute, or Chronic, or Acute on Chronic? @ -Acute Uncomplicated (without systemic symptoms) or Complicated (systemic symptoms)? @ -Uncomplicated Side effects of treatment? @ -none Exacerbation, Progression, or Severe Exacerbation] @ -no Poses a threat to life or bodily function? @ -no Case discussed with Dr. Galvan. Disposition Clinical Impression: Laceration Disposition: HOME SELF-CARE Condition: Stable Instructions (If sedation given, give patient instructions): Laceration (ED), Head Injury (ED), Staple Care (ED) Additional Instructions: Please keep wound clean and dry. Monitor for signs and symptoms of infection and seek medical attention as appropriate if symptoms occur. Please return to the emergency department for staple removal in 7-10 days. Please return to the Emergency Department if symptoms worsen or any other concerns. Is patient prescribed a controlled substance at d/c from ED?: No Referrals: Myron Booker MD [Primary Care Provider] - 1-2 days Time of Disposition: 14:44
[2023-02-16 15:09] VITALS: BP 125/66; PULSE 78; TEMP 97.9
== END 2023-02-16 14:58 | disposition home or self-care (01) ==
LOC: EC 13:26
DX: S01.01XA Laceration without foreign body of scalp, initial encounter (principal); E11.9 Type 2 diabetes mellitus without complications; I10 Essential (primary) hypertension; E78.5 Hyperlipidemia, unspecified; Z87.891 Personal history of nicotine dependence; Z79.84 Long term (current) use of oral hypoglycemic drugs; Z79.899 Other long term (current) drug therapy; Z88.8 Allergy status to other drugs, medicaments and biological substances; Z23 Encounter for immunization; W01.190A Fall on same level from slipping, tripping and stumbling with subsequent striking against furniture, initial encounter
CPT/HCPCS: 12001; 90471; 90715; 99282

== ENCOUNTER → 2023-12-14 | Outpatient (CLI) | payer BC ==
--- NOTE | 2023-12-15 10:02 | CA ---
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 67 - 155 / 56 - 104 cm??? LV Systolic Volume MOD BP 24.9 cm??? 22 - 58 / 19 - 49 cm??? LV Ejection Fraction MOD BP 62.5 % >= 55 % LV Cardiac Index MOD BP 2529.7 cm???/min???m??? LV Diastolic Volume MOD 4C 67.5 cm??? LV Systolic Volume MOD 4C 25.4 cm??? LV Ejection Fraction MOD 4C 62.4 % LV Cardiac Index MOD 4C 2555.8 cm???/min???m??? LV Diastolic Length 4C 7.0 cm LV Systolic Length 4C 5.3 cm LV Diastolic Volume MOD 2C 65.5 cm??? LV Systolic Volume MOD 2C 24.2 cm??? LV Ejection Fraction MOD 2C 63.0 % LV Cardiac Index MOD 2C 2504.6 cm???/min???m??? LV Diastolic Length 2C 7.1 cm LV Systolic Length 2C 5.2 cm LA Volume 31.1 cm??? 18 - 58 / 22 - 52 cm??? LA Volume Index 21.2 cm???/m??? 16 - 28 cm???/m??? Ascending Aorta Diameter 3.3 cm DOPPLER AV Peak Velocity 128.2 cm/s AV Peak Gradient 6.6 mmHg AV Mean Velocity 86.4 cm/s AV Mean Gradient 3.4 mmHg AV Velocity Time Integral 24.9 cm LVOT Peak Velocity 102.6 cm/s LVOT Peak Gradient 4.2 mmHg LVOT Velocity Time Integral 20.4 cm LVOT Stroke Volume 53.4 cm??? LVOT Stroke Volume Index 37.2 ml/m??? LVOT Cardiac Index 3243.3 cm???/min???m??? AV Area Cont Eq vti 2.1 cm??? AV Area Cont Eq pk 2.1 cm??? MV Area PHT 3.1 cm??? Mitral E Point Velocity 60.8 cm/s Mitral A Point Velocity 85.8 cm/s Mitral E to A Ratio 0.7 MV Deceleration Time 244.8 ms PV Peak Velocity 82.9 cm/s PV Peak Gradient 2.7 mmHg FINDINGS Left Ventricle Left ventricular ejection fraction is estimated at 55-60%. Left ventricular cavity size normal. Left ventricular wall thickness normal. No obvious regional wall motion abnormalities. Right Ventricle Normal right ventricular size and function. Unable to estimate the right ventricular systolic pressure. Right Atrium Normal right atrial size. Left Atrium Normal left atrial size. Mitral Valve Structurally normal mitral valve. No mitral stenosis, regurgitation or prolapse. Aortic Valve Trileaflet aortic valve. No aortic valve stenosis or regurgitation. Tricuspid Valve Structurally normal tricuspid valve. No tricuspid stenosis. Trace tricuspid regurgitation. Pulmonic Valve Structurally normal pulmonic valve. No pulmonic stenosis. No pulmonic regurgitation. Pericardium No pericardial effusion. Aorta Normal size aortic root and proximal ascending aorta. CONCLUSIONS Normal LV size and systolic function. No significant abnormality in the Doppler exam. No pulmonary hypertension. No pericardial effusion Previewed by: Dr. Nayely Frederick MD (Electronically Signed) Final Date: 15 Dec 2023 10:01
--- NOTE | 2023-12-15 20:08 | MM ---
Reason for Exam: Screening (asymptomatic). Last screening mammogram was performed 12 month(s) ago. Patient History: Menarche at age 9. Patient has no children. Postmenopausal. Risk Values: Ginger 5 year model risk: 2.1%. NCI Lifetime model risk: 6.1%. Prior Study Comparison: 09/26/2020 Bilateral Screening Mammogram, [facility]. 11/11/2021 Bilateral Screening Mammogram, [facility]. 12/08/2022 Bilateral MG screening mammo w CAD, [facility]. Tissue Density: The breasts are heterogeneously dense, which may obscure small masses. Findings: Analyzed By CAD. There is no suspicious group of microcalcifications or new suspicious mass in either breast. Overall Assessment: Negative, BI-RAD 1 Management: Screening Mammogram of both breasts in 1 year. . Patient should continue monthly self-breast exams. A clinical breast exam by your physician is recommended on an annual basis. This exam should not preclude additional follow-up of suspicious palpable abnormalities. Note on Ginger scores and lifetime risk: 1. A Ginger score greater than 3% is considered moderate risk. If this is the case, consider specialist referral to assess eligibility for a risk reducing agent. 2. If overall lifetime risk for the development of breast cancer is 20% or higher, the patient may qualify for future screening with alternating mammogram and breast MRI. Electronically signed and approved by: Panfilo Ewing M.D. Radiologist
--- NOTE | 2023-12-18 15:30 | US ---
EXAMINATION TYPE: US carotid duplex BILAT DATE OF EXAM: 12/14/2023 COMPARISON: NONE CLINICAL INDICATION: Female, 68 years old with history of [id number] BILAT STENOSIS; Hx hypertension, hype rlipidemia, diabetes, prior smoker. TECHNIQUE: Carotid duplex ultrasound examination. Indirect Doppler criteria was utilized. FINDINGS: EXAM MEASUREMENTS: RIGHT: Peak Systolic Velocity (PSV) cm/sec ----- Right CCA: 63.3 ----- Right ICA: 75.6 ----- Right ECA: 64.2 ICA/CCA ratio: 1.2 RIGHT: End Diastole cm/sec ----- Right CCA: 15.4 ----- Right ICA: 24.1 ----- Right ECA: 7.5 LEFT: Peak Systolic Velocity (PSV) cm/sec ----- Left CCA: 54.6 ----- Left ICA: 59.5 ----- Left ECA: 88.9 ICA/CCA ratio: 1.1 LEFT: End Diastole cm/sec ----- Left CCA: 11.9 ----- Left ICA: 17.5 ----- Left ECA: 12.0 VERTEBRALS (direction of flow): Right Vertebral: Antegrade Left Vertebral: Antegrade Rhythm: Normal SUPERVISOR INSPECTING NOTES: Intimal thickening seen bilateral carotid systems. Minimal plaque seen within righ t bulb. No elevated velocities at this time. IMPRESSION: No ultrasound evidence for hemodynamically significant stenosis of the bilateral visualized carotid a rterial systems. Criteria for Assigning % of Stenosis / Diameter reduction (Estimation based on the indirect measurements of the internal carotid artery velocities (ICA PSV). 1. Normal (no stenosis)=ICA PSV < 125 cm/s: ratio < 2.0: ICA EDV<40 cm/s. 2. Less than 50% stenosis=ICA PSV < 125 cm/s: ratio < 2.0: ICA EDV<40 cm/s. 3. 50 to 69% stenosis=ICA PSV of 125 to 230 cm/s: ration 2.0 ? 4.0: ICA EDV 40-100 cm/s. 4. Greater than 70% stenosis to near occlusion= ICA PSV > 230 cm/s: ratio > 4.0: ICA EDV > 100 cm/s. 5. Near occlusion= ICA PSV velocities may be low or undetectable: variable ratio and ICA EDV. 6. Total occlusion=unable to detect flow.
== END | disposition home or self-care (01) ==
LOC: RADUSWWP 15:18
PROVIDERS: ATTEND Internal Medicine
DX: Z12.31 Encounter for screening mammogram for malignant neoplasm of breast (principal); I65.23 Occlusion and stenosis of bilateral carotid arteries; I34.0 Nonrheumatic mitral (valve) insufficiency
CPT/HCPCS: 77063; 77067; 93306; 93880

== ENCOUNTER → 2025-01-07 | Outpatient (CLI) | payer MEDICARE ==
--- NOTE | 2025-01-07 14:42 | MM ---
Reason for Exam: Screening (asymptomatic). Last mammogram was performed 1 year(s) and 1 month(s) ago. Patient History: Menarche at age 9. Patient has no children. Postmenopausal. Risk Values: Ginger 5 year model risk: 2.1%. NCI Lifetime model risk: 5.9%. Prior Study Comparison: 11/11/2021 Bilateral Screening Mammogram, [facility]. 12/08/2022 Bilateral MG screening mammo w CAD, [facility]. 12/14/2023 Bilateral MG 3D screening mammo w/cad, [facility]. Tissue Density: The breasts are extremely dense, which lowers the sensitivity of mammography. Findings: Analyzed By CAD. Right breast: There is no suspicious group of microcalcifications or new suspicious mass. Left breast: There is no suspicious group of microcalcifications or new suspicious mass. Overall Assessment: Negative, BI-RAD 1 Management: Screening Mammogram of both breasts in [address] [facility] will attempt to contact patient to return for supplemental views and ultrasound if indicated. Patient should continue monthly self-breast exams. A clinical breast exam by your physician is recommended on an annual basis. This exam should not preclude additional follow-up of suspicious palpable abnormalities. Note on Ginger scores and lifetime risk: 1. A Ginger score greater than 3% is considered moderate risk. If this is the case, consider specialist referral to assess eligibility for a risk reducing agent. 2. If overall lifetime risk for the development of breast cancer is 20% or higher, the patient may qualify for future screening with alternating mammogram and breast MRI. [facility], , 01/07/2025 2:38 PM. Electronically signed and approved by: Jose Kiser DO
--- NOTE | 2025-01-08 13:27 | BD ---
EXAMINATION TYPE: Axial Bone Density DATE OF EXAM: 01/07/2025 CLINICAL HISTORY: 69 years old Female. ICD-10 CODE: M81.0 AGE RELATED OSTEOPOROSIS , Additional His tory: Height: 4 ft 10 in Weight: 118no FRAX RISK QUESTIONS: Alcohol (3 or more units per day): no Family History (Parent hip fracture): no Glucocorticoids (More than 3mos): no (Ex: prednisone, prednisolone, methylprednisolone, dexamethasone, and hydrocortisone). History of Fracture in Adulthood: no Secondary Osteoporosis: 1. Type 1 Diabetes: type 2 2. Hyperthyroidism: partial thyroid removed 3. Menopause before 45: yes 4. Malnutrition: no 5. Chronic liver disease: no Rheumatoid Arthritis: no Current Tobacco Use: no RISK FACTORS HISTORY OF: Surgery to Spine/Hip(right/left)/Wrist (right/left): none MEDICATIONS: Thyroid Medications: none Osteoporosis Medications: none EXAM MEASUREMENTS: Bone mineral densitometry was performed using the [employer] System. Bone mineral density as measured about the Lumbar spine is: ----- L1-L4(G/cm2): 0.779 T Score Values are as follows: ----- L1: -3.3 ----- L2: -4.0 ----- L3: -3.4 ----- L4: -3.1 ----- L1-L4: -3.3 Z Score Values are as follows: ----- L1: -1.2 ----- L2: -1.9 ----- L3: -1.3 ----- L4: -1.0 ----- L1-L4: -1.3 Bone mineral density has: decreased -9.6 % since study of: 2022 Bone mineral density about the R hip (g/cm2): 0.705 Bone mineral density about the L hip (g/cm2): 0.691 T Score values are as follows: -----R Neck: -2.4 -----L Neck: -2.5 -----R Total: -2.3 -----L Total: -2.3 Z Score values are as follows: -----R Neck: -0.4 -----L Neck: -0.5 -----R Total: -0.5 -----L Total: -0.5 Bone mineral density has: decreased -7.0 % since study of: 2022 FRAX%s: The graph provided illustrates a 15.7 % chance for a major osteoporotic fx and a 4.4 % chance for the hips probability for fx in 10 years time. IMPRESSION: Osteoporosis (T Score less than -2.5). There is increased fracture risk and therapy is usually indicated based on age. Re-Screen 1-2 years. NOTE: T-SCORE=SD OF THE YOUNG ADULT MEAN. [facility], , 01/08/2025 1:25 PM
== END | disposition home or self-care (01) ==
LOC: RADMAMWWP 13:47
PROVIDERS: ATTEND Internal Medicine
DX: Z12.31 Encounter for screening mammogram for malignant neoplasm of breast (principal); M81.0 Age-related osteoporosis without current pathological fracture; R92.343 Mammographic extreme density, bilateral breasts; Z78.0 Asymptomatic menopausal state
CPT/HCPCS: 77063; 77067; 77080